=== PATIENT | male | born 1975 | race Caucasian/White ===

== ENCOUNTER 2016-11-26 18:07 | Emergency (ER) | payer OTHER ==
[~2016-11-26] VITALS: Ht 175.3 cm; Wt 98.1 kg
[~2016-11-26 18:07] MED LIST: ACET500C5 PO; ASPI81TA3 PO; BISM262O23 PO; DIVA250T60 PO; METF500T4 PO; OMEG-135 PO; PHEN100C PO; PHEN300C2 PO; SIMV20TA97 PO; ZOF8 PO
[2016-11-26 18:09] VITALS: Ht 175.3 cm; Wt 98.1 kg
[2016-11-26] MEDS ORDERED: IBUPROFEN 800 MG TAB PO ONE (19:00)
--- NOTE | 2016-11-26 19:28 | RADRPT ---
PROCEDURE: XR Right Foot. CLINICAL INDICATION: Right foot pain. TECHNIQUE: Three views. Frontal, lateral, and oblique. COMPARISON: None. FINDINGS: There is no fracture or dislocation. The soft tissues are normal. Articular surfaces are intact. There is no lytic or blastic lesion. There is a surgical screw in the medial malleolus. IMPRESSION: 1. Surgical screw in the medial malleolus. 2. Otherwise normal images of the right foot. RPTAT: QQ .Chivo Trevino MD, Date Time Electronically viewed and signed by .Chivo Trevino MD, on 11/26/2016 19:27 .R/
[2016-11-26 20:20] VITALS: BP 123/64; PULSE 71; RESP 18
[2016-11-26] MEDS ORDERED: IBUP-1542 PO (20:20)
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
== END 2016-11-26 20:20 | disposition home or self-care (01) ==
LOC: FTE 18:07
DX: S99.921A Unspecified injury of right foot, initial encounter (principal); I10 Essential (primary) hypertension; E11.9 Type 2 diabetes mellitus without complications; W18.40XA Slipping, tripping and stumbling without falling, unspecified, initial encounter; Y92.9 Unspecified place or not applicable; Z79.82 Long term (current) use of aspirin; Z79.84 Long term (current) use of oral hypoglycemic drugs; Z87.891 Personal history of nicotine dependence
CPT/HCPCS: 73630; Z7502; Z7610

== ENCOUNTER 2017-03-19 23:15 | Inpatient (IN) | payer OTHER ==
[~2017-03-19] VITALS: Ht 175.3 cm; Wt 100.0 kg
[~2017-03-19 23:15] MED LIST changes: +IBUP-1542 PO; +SIMV20TA PO; -SIMV20TA97 PO
[2017-03-19 23:19] VITALS: Ht 175.3 cm; Wt 100.0 kg
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
[2017-03-19 23:56] LABS: ADD SCAN DIFF NO
[2017-03-19 23:58] LABS: BASOPHILS % 0.4 % (0.0-2.0); EOSINOPHILS # 0.2 10^3/ul (0.0-0.5); EOSINOPHILS % 1.5 % (0.0-7.0); HEMATOCRIT 45.9 % (42.0-52.0); HEMOGLOBIN 15.8 g/dl (14.0-18.0); LYMPHOCYTES # 3.8 10^3/ul (0.8-2.9); LYMPHOCYTES % 38.4 % (15.0-51.0); MEAN CORPUSCULAR HEMOGLOBIN 29.8 pg (29.0-33.0); MEAN CORPUSCULAR HGB CONC 34.4 g/dl (32.0-37.0); MEAN CORPUSCULAR VOLUME 86.6 fl (82.0-101.0); MEAN PLATELET VOLUME 9.1 fl (7.4-10.4); MONOCYTE # 0.7 10^3/ul (0.3-0.9); NEUTROPHIL # 5.2 10^3/ul (1.6-7.5); NEUTROPHILS % 52.3 % (39.0-77.0); PLATELET COUNT 332 10^3/UL (140-415); RED CELL DISTRIBUTION WIDTH 12.5 % (11.5-14.5); WHITE BLOOD COUNT 9.9 10^3/ul (4.8-10.8)
[2017-03-20 00:19] LABS: ALBUMIN 4.4 g/dl (3.3-4.9); ALBUMIN/GLOBULIN RATIO 1.41; BILIRUBIN,INDIRECT 0.1 mg/dl (0-1.1); BILIRUBIN,TOTAL 0.1 mg/dl (0.2-1.3); CALCIUM 9.4 mg/dl (8.4-10.2); CREATININE 0.64 mg/dl (0.61-1.24); POTASSIUM 3.8 mmol/L (3.5-5.1); TOTAL PROTEIN 7.5 g/dl (6.1-8.1)
[2017-03-20 00:20] LABS: ADD UMIC NO; URINE BILIRUBIN (Dip) NEGATIVE (NEGATIVE); URINE BLOOD (Dip) NEGATIVE (NEGATIVE); URINE COLOR LT. YELLOW (YELLOW); URINE GLUCOSE (Dip) NEGATIVE (NEGATIVE); URINE KETONES (Dip) NEGATIVE (NEGATIVE); URINE LEUKOCYTE ESTERASE (Dip) NEGATIVE (NEGATIVE); URINE NITRITE (Dip) NEGATIVE (NEGATIVE); URINE TOTAL PROTEIN (Dip) NEGATIVE (NEGATIVE); URINE UROBILINOGEN (Dip) 0.2 E.U./dL (0.1-1.0)
--- NOTE | 2017-03-20 01:58 | RADRPT ---
PROCEDURE: XR acute abdominal series. CLINICAL INDICATION: Abdominal pain. TECHNIQUE: 4 view abdomen x-ray series including a frontal radiograph of the chest is available fo r review. COMPARISON: None. FINDINGS: Gas and stool are seen within nondilated large bowel. There are no dilated loops of small bowel to suggest a bowel obstruction. There is no pneumoperitoneum. No abnormal calcifications are identifie d. The lungs are clear. The cardiomediastinal silhouette is within normal limits. No pleural effusion or pneumothorax is seen. IMPRESSION: 1. Nonobstructive bowel gas pattern. 2. No pneumoperitoneum. 3. Clear lungs. RPTAT: HTAR .Persley Coy MD, MD Date Time Electronically viewed and signed by .Presley Coy MD, on 03/20/2017 01:57 .R/
--- NOTE | 2017-03-20 02:02 | RADRPT ---
PROCEDURE: US Abdomen (right upper quadrant). CLINICAL INDICATION: Pain. TECHNIQUE: Multiple real-time longitudinal and transverse images of the right upper quadrant of th e abdomen were acquired utilizing a curved array transducer. Images were reviewed on a high-resoluti on PACS workstation. COMPARISON: None FINDINGS: The liver is enlarged and 19 22 cm length with normal echogencity and without a focal mass. Gallbla dder is filled with calcified gallstones. Gallbladder wall is slightly thickened and 3.1 mm. There is no pericholecystic fluid. There is a positive sonographic Holland's sign. No intra or extrahepat ic biliary dilatation is seen. The common bile duct measures 3.4 mm in maximal dimension. The panc reas is obscured by bowel gas. No free fluid is identified. The right kidney measures 12.2 cm in length. Right kidney is normal in size and echogenicity withou t hydronephrosis, mass or calculus. There is no perinephric fluid collection. IMPRESSION: 1. Cholelithiasis with gallbladder wall thickening and positive sonographic Holland's sign suggestin g cholecystitis. 2. No evidence for biliary obstruction. 3. Pancreas obscured by bowel gas. .Gonzales Perez MD, MD Date Time Electronically viewed and signed by .Gonzales Perez MD, MD on 03/20/2017 02:02 .Rick/
[2017-03-20] MEDS ORDERED: morphine 4 MG/ML VIAL IV STA (02:09)
[2017-03-20] MEDS ORDERED: CEFTRIAXONE 2 GM/50 ML (PMX) 50 ML IVPB ONE (02:30)
[2017-03-20] MEDS ORDERED: SOD CHLORIDE 0.9% 1,000 ML IV ONE (02:30)
[2017-03-20 02:35] LABS: INR 0.91; PARTIAL THROMBOPLASTIN TIME 26.1 Sec (25.0-35.0); PROTIME 12.3 Sec (12.2-14.2)
[2017-03-20 03:03] VITALS: TEMP 98
[2017-03-20] MEDS ORDERED: ONDANSETRON 4 MG INJ IV STA (03:04)
[2017-03-20] MEDS ORDERED: ACETAMINOPHEN 325 MG TAB PO PRN (03:30)
[2017-03-20] MEDS ORDERED: ONDANSETRON 4 MG INJ IV PRN ×2 (03:30→05:00)
[2017-03-20 04:00] VITALS: BP 115/56; PULSE 60; RESP 18
[2017-03-20] MEDS ORDERED: GLUCAGON 1 MG INJ IM PRN (05:00)
[2017-03-20] MEDS ORDERED: DEXTROSE 50% 50 ML SYRINGE IV PRN ×2 (05:00)
[2017-03-20] MEDS ORDERED: GLUCOSE GEL 15 GRAM TUBE BUCCAL PRN (05:00)
[2017-03-20] MEDS ORDERED: GLUCOSE GEL 15 GRAM TUBE PO PRN ×2 (05:00)
[2017-03-20] MEDS: SOD CHLORIDE 0.9% 1,000 ML IV SCH ×4 (05:55→23:27)
[2017-03-20] MEDS: INSULIN ASPART [NOVOLOG] 3 ML PEN SC SCH ×5 (06:05→21:00)
[2017-03-20] MEDS: PIPER-TAZO 3.375 GM IV (PMX) 100 ML IVPB SCH ×4 (06:29→23:37)
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
[2017-03-20] MEDS ORDERED: NACL 0.9% 3 ML SYG IV SCH (07:00)
[2017-03-20 08:04] VITALS: BP 112/69; RESP 18
[2017-03-20 10:12] LABS: ADD SCAN DIFF NO
[2017-03-20 10:15] LABS: BASOPHILS % 0.4 % (0.0-2.0); EOSINOPHILS # 0.1 10^3/ul (0.0-0.5); EOSINOPHILS % 1.6 % (0.0-7.0); HEMATOCRIT 45.8 % (42.0-52.0); MEAN CORPUSCULAR HEMOGLOBIN 29.3 pg (29.0-33.0); MEAN CORPUSCULAR HGB CONC 32.8 g/dl (32.0-37.0); MEAN CORPUSCULAR VOLUME 89.5 fl (82.0-101.0); MEAN PLATELET VOLUME 9.1 fl (7.4-10.4); MONOCYTE # 0.5 10^3/ul (0.3-0.9); NEUTROPHIL # 3.8 10^3/ul (1.6-7.5); NEUTROPHILS % 50.6 % (39.0-77.0); PLATELET COUNT 292 10^3/UL (140-415); RED BLOOD COUNT 5.12 10^6/ul (4.70-6.10); RED CELL DISTRIBUTION WIDTH 12.9 % (11.5-14.5); WHITE BLOOD COUNT 7.5 10^3/ul (4.8-10.8)
[2017-03-20 10:36] LABS: CHOL/HDL RATIO 1.8 RATIO
[2017-03-20] MEDS: HYDROmorphONE 1 MG/ML SYG IV PRN (13:03)
[2017-03-20] MEDS: DIVALPROEX (ER) 250 MG TAB PO SCH ×2 (13:06→20:48)
[2017-03-20] MEDS: PHENYTOIN 100 MG CAP PO SCH ×2 (13:06→20:48)
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
[2017-03-20 20:41] VITALS: BP 120/82; RESP 50
[2017-03-20] MEDS: FISH OIL 1,000 MG CAP PO SCH (20:47)
[2017-03-20] MEDS: ATORVASTATIN 20 MG TAB PO SCH (20:47)
[2017-03-20] MEDS ORDERED: DIVALPROEX (ER) 250 MG TAB PO SCH (21:00)
[2017-03-20 22:30] VITALS: PULSE 55
[2017-03-21] VITALS (22 sets, daily range): BP systolic 109–146; BP diastolic 60–79; PULSE 46–76; RESP 15–23
[2017-03-21] MEDS: HYDROmorphONE 1 MG/ML SYG IV PRN ×3 (00:08→20:39)
[2017-03-21] MEDS: INSULIN ASPART [NOVOLOG] 3 ML PEN SC SCH ×6 (01:00→21:00)
[2017-03-21] MEDS: PIPER-TAZO 3.375 GM IV (PMX) 100 ML IVPB SCH ×3 (05:24→20:42)
[2017-03-21 05:27] LABS: ADD SCAN DIFF NO
[2017-03-21 06:02] LABS: BASOPHILS % 0.5 % (0.0-2.0); EOSINOPHILS # 0.2 10^3/ul (0.0-0.5); HEMATOCRIT 43.2 % (42.0-52.0); HEMOGLOBIN 14.5 g/dl (14.0-18.0); MEAN CORPUSCULAR HEMOGLOBIN 29.5 pg (29.0-33.0); MEAN CORPUSCULAR HGB CONC 33.6 g/dl (32.0-37.0); MEAN CORPUSCULAR VOLUME 87.8 fl (82.0-101.0); MEAN PLATELET VOLUME 9.4 fl (7.4-10.4); MONOCYTE # 0.6 10^3/ul (0.3-0.9); MONOCYTES % 8.7 % (0.0-11.0); NEUTROPHIL # 3.5 10^3/ul (1.6-7.5); NEUTROPHILS % 47.4 % (39.0-77.0); PLATELET COUNT 306 10^3/UL (140-415); RED BLOOD COUNT 4.92 10^6/ul (4.70-6.10); RED CELL DISTRIBUTION WIDTH 12.5 % (11.5-14.5); WHITE BLOOD COUNT 7.4 10^3/ul (4.8-10.8)
[2017-03-21 06:06] LABS: CALCIUM 8.3 mg/dl (8.4-10.2); CREATININE 0.6 mg/dl (0.61-1.24); MAGNESIUM 1.5 mg/dl (1.7-2.5); POTASSIUM 4.1 mmol/L (3.5-5.1)
[2017-03-21] MEDS: SOD CHLORIDE 0.9% 1,000 ML IV SCH ×3 (06:50→21:06)
[2017-03-21] MEDS: PHENYTOIN 100 MG CAP PO SCH ×2 (09:00→21:00)
[2017-03-21] MEDS: DIVALPROEX (ER) 250 MG TAB PO SCH ×2 (09:00→21:00)
[2017-03-21] MEDS ORDERED: PHENYTOIN 100 MG CAP PO SCH (09:00)
[2017-03-21] MEDS: FISH OIL 1,000 MG CAP PO SCH ×2 (09:00→21:00)
--- NOTE | 2017-03-21 10:56 | PN ---
Date/Time of Note Date/Time of Note DATE: 03/21/17 TIME: 10:56 Assessment/Plan Lines/Catheters IV Catheter Type (from Nrs): Peripheral IV Guerra in Place (from Nrs): No Assessment/Plan Assessment/Plan 41-year-old male with acute cholecystitis * Patient continues to have pain requiring IV narcotic pain medication * Recommend laparoscopic cholecystectomy; possible open * Discussed risks and benefits of the procedure with patient. Patient understands and agrees to proceed * Will schedule for surgery Subjective 24 Hr Interval Summary Still with right upper quadrant abdominal pain requiring IV narcotic pain medication. Afebrile. Exam/Review of Systems Vital Signs Vitals Vital Signs Date Time Temp Pulse Resp B/P Pulse Ox O2 Delivery O2 Flow Rate FiO2 03/21/17 08:30 98.0 52 18 124/77 98 03/20/17 04:00 Room Air Intake and Output 03/20/17 03/20/17 03/21/17 15:00 23:00 07:00 Intake Total 100 ml 1860 ml 3010 ml Output Total 1400 ml Balance 100 ml 1860 ml 1610 ml Exam Free Text/Dictation GENERAL APPEARANCE: A well-developed, well-nourished male who is awake , alert, and oriented x3 and in no acute distress at this time. His skin is not jaundiced. HEENT: Pupils are equal and reactive to light and accommodation. Extraocular muscles are intact. There is no scleral icterus. CARDIOVASCULAR: S1, S2, regular rate and rhythm. No murmurs appreciated. RESPIRATORY: Clear to auscultation bilaterally. ABDOMEN: Soft. Bowel sounds are present. He is nondistended. There is right upper quadrant tenderness to palpation. There is a negative Holland sign. EXTREMITIES: Do not exhibit any cyanosis, edema or clubbing. Results Result Diagram: 03/21/17 0452 03/21/17 0452 HANNA THOMASON MD March 21, 2017 10:56
--- NOTE | 2017-03-21 11:05 | PN ---
Date/Time of Note Date/Time of Note DATE: 03/21/17 TIME: 11:00 Assessment/Plan VTE Prophylaxis VTE Prophylaxis Intervention: SCD's Lines/Catheters IV Catheter Type (from Nrs): Peripheral IV Urinary Cath still in place: No Assessment/Plan Chief Complaint/Hosp Course Assessment and plan 1. Acute cholecystitis. Patient with abdominal imaging consistent with cholecystitis. Surgeon following. . Continue antibiotics. Monitor for now. Should patient have worsening pain. Tentative plan for surgical intervention 2. History of seizures. Patient resumed on his antiepileptic medication. 3. History of dyslipidemia. Continue statin medication. 4. Hypomagnesemia. To be repleted. Will check level in a.m. 5. Reported history of diabetes. A1c of 5.9. Patient on metformin at home. To be resumed as outpatient. Disposition and plan : on antibiotics for cholecystitis.. Will follow up with surgeon recommendations. Continue antibiotics for now. Tentative plan for surgical intervention should patient have persistent pain. Discussed plan of care with Dr. Ponce Problems: Subjective 24 Hr Interval Summary Free Text/Dictation Still reports having some right upper quadrant abdominal pain. 1-3 out of intensity. Nonradiating. No nausea vomiting reported with it. Exam/Review of Systems Vital Signs Vitals Vital Signs Date Time Temp Pulse Resp B/P Pulse Ox O2 Delivery O2 Flow Rate FiO2 03/21/17 08:30 98.0 52 18 124/77 98 03/20/17 04:00 Room Air Intake and Output 03/20/17 03/20/17 03/21/17 15:00 23:00 07:00 Intake Total 100 ml 1860 ml 3010 ml Output Total 1400 ml Balance 100 ml 1860 ml 1610 ml Exam Constitutional: alert, oriented, other (Blind) Psych: nl mood/affect Head: normocephalic Neck: supple, No jvd Respiratory: clear to auscultation Gastrointestinal: soft, tender Musculoskeletal: No swelling Neurological: [employer] AGENT II-XII intact, nl mental status, nl speech Results Result Diagram: 03/21/172 03/21/17451 Results 24 hrs Laboratory Tests Test 03/20/17 13:09 03/20/17 17:25 03/20/17 20:51 03/21/17 01:03 Bedside Glucose 126 92 97 87 Test 03/21/17 04:52 03/21/17 08:56 White Blood Count 7.4 Red Blood Count 4.92 Hemoglobin 14.5 Hematocrit 43.2 Mean Corpuscular Volume 87.8 Mean Corpuscular Hemoglobin 29.5 Mean Corpuscular Hemoglobin Concent 33.6 Red Cell Distribution Width 12.5 Platelet Count 306 Mean Platelet Volume 9.4 Neutrophils % 47.4 Lymphocytes % 41.0 Monocytes % 8.7 Eosinophils % 2.0 Basophils % 0.5 Nucleated Red Blood Cells % 0.0 Neutrophils # 3.5 Lymphocytes # 3.0 H Monocytes # 0.6 Eosinophils # 0.2 Basophils # 0.0 Nucleated Red Blood Cells # 0.0 Sodium Level 140 Potassium Level 4.1 Chloride Level 111 H Carbon Dioxide Level 25 Anion Gap 8 Blood Urea Nitrogen 8 Creatinine 0.60 L Glucose Level 88 Bedside Glucose 84 90 Calcium Level 8.3 L Magnesium Level 1.5 L Medications Medications Current Medications Piperacillin Sod/ Tazobactam Sod 100 ml @ 200 mls/hr Q6 IVPB Last administered on 03/21/17 05:24; Admin Dose 200 MLS/HR; Start 03/20/17 at 06:00 Sodium Chloride (NS) 1,000 ml @ 150 mls/hr Q6H40M IV Last administered on 06:50; Admin Dose 150 MLS/HR; Start 03/20/17 at 05:00 Hydromorphone HCl (Dilaudid) 0.5 mg Q4H PRN IV PAIN Last administered on 00:08; Admin Dose 0.5 MG; Start 03/20/17 at 05:00 Ondansetron HCl (Zofran Inj) 4 mg Q4H PRN IV NAUSEA AND/OR VOMITING Last administered on 03/20/17 19:43; Admin Dose 4 MG; Start 03/20/17 at 05:00 Insulin Aspart (Novolog Insulin Pen) NOVOLOG *MILD* ALGORI... Q4 SC ; Start 03/20 at 05:00 Miscellaneous Information 1 ea NOTE XX ; Start 03/20/17 at 05:00 Glucose (Glutose) 15 gm Q15M PRN PO DECREASED GLUCOSE; Start 03/20/17 at 05:00 Glucose (Glutose) 22.5 gm Q15M PRN PO DECREASED GLUCOSE; Start 03/20/17 at 05:00 Dextrose (D50w Syringe) 25 ml Q15M PRN IV DECREASED GLUCOSE; Start 03/20/17 at 05:00 Dextrose (D50w Syringe) 50 ml Q15M PRN IV DECREASED GLUCOSE; Start 03/20/17 at 05:00 Glucagon (Glucagen) 1 mg Q15M PRN IM DECREASED GLUCOSE; Start 03/20/17 at 05:00 Glucose (Glutose) 15 gm Q15M PRN BUCCAL DECREASED GLUCOSE; Start 03/20/17 at 05: 00 Fish Oil (Fish Oil) 2,000 mg BID PO Last administered on 03/20/17 20:47; Admin Dose 2,000 MG; Start 03/20/17 at 21:00 Phenytoin (Dilantin) 300 mg HS PO Last administered on 03/20/17 20:48; Admin Dose 300 MG; Start 03/20/17 at 21:00 Atorvastatin Calcium (Lipitor) 20 mg DAILY@21 PO Last administered on 03/20/17 20:47; Admin Dose 20 MG; Start 03/20/17 at 21:00 Phenytoin (Dilantin) 200 mg AM PO Last administered on 03/20/17 13:06; Admin Dose 200 MG; Start 03/20/17 at 13:00 Divalproex Sodium (Depakote Er) 250 mg BID PO Last administered on 03/20/17 20: 48; Admin Dose 250 MG; Start 03/20/17 at 13:00 GEO ENGEL March 21, 2017 11:05
[2017-03-21] MEDS ORDERED: BUPIVACAINE 0.25%/EPI (SDV) 30 ML INJ ONE (16:26)
[2017-03-21] MEDS ORDERED: SUCCINYLCHOLINE CHLORIDE 100 MG/5 ML SYG IV ONE (16:26)
[2017-03-21] MEDS ORDERED: ROCURONIUM 50 MG INJ ONE ×3 (16:26→17:41)
[2017-03-21] MEDS ORDERED: PROPOFOL 40 ML ONE (16:26)
[2017-03-21] MEDS ORDERED: ROPIVACAINE 0.5 % 30 ML VIAL ONE ×2 (16:27→16:33)
[2017-03-21] MEDS ORDERED: MIDAZOLAM 1 MG/ML 2 ML INJ ONE (16:27)
[2017-03-21] MEDS ORDERED: PHENYLephrine (100 MCG/ML) 5ML SYG ONE (16:51)
[2017-03-21] MEDS ORDERED: ONDANSETRON 4 MG INJ IV PRN ×2 (17:30→18:30)
[2017-03-21] MEDS ORDERED: DIPHENHYDRAMINE 50 MG INJ IV PRN (17:30)
[2017-03-21] MEDS ORDERED: morphine (1 MG/ML) 10ML SYRINGE IV PRN ×3 (17:30)
[2017-03-21] MEDS ORDERED: LABETALOL HCL 20MG INJ IV PRN (17:30)
[2017-03-21] MEDS ORDERED: MEPERIDINE 25 MG INJ IV PRN (17:30)
[2017-03-21] MEDS ORDERED: HYDROmorphONE (0.2 MG/ML) 10ML SYG IV PRN ×3 (17:30)
[2017-03-21] MEDS ORDERED: EPHEDrine SULFATE 50 MG/5 ML SYG IV PRN (17:30)
[2017-03-21] MEDS ORDERED: hydrALAzine 20 MG INJ IV PRN (17:30)
[2017-03-21] MEDS ORDERED: FENTAnyl 50 MCG/ML VIAL IV PRN ×3 (17:30)
[2017-03-21] MEDS ORDERED: NEOSTIGMINE 3 MG/3 ML SYRINGE ONE (18:11)
[2017-03-21] MEDS ORDERED: ONDANSETRON 4 MG INJ ONE (18:14)
[2017-03-21] MEDS ORDERED: METOCLOPRAMIDE 10 MG INJ ONE (18:14)
[2017-03-21] MEDS ORDERED: DEXAMETHASONE 4 MG/ML 1 ML INJ ONE (18:14)
[2017-03-21] MEDS ORDERED: HYDROCODONE/APAP (10/325) TAB PO PRN (18:30)
[2017-03-21] MEDS ORDERED: HYDROCODONE/APAP (5/325) TAB PO PRN (18:30)
[2017-03-21] MEDS ORDERED: ACETAMINOPHEN 325 MG TAB PO PRN (18:30)
--- NOTE | 2017-03-21 18:41 | OPR ---
Date/Time of Note Date/Time of Note DATE: 03/21/17 TIME: 18:34 Operative Report Procedure Date: March 21, 2017 Preoperative Diagnosis Acute cholecystitis Postoperative Diagnosis Acute cholecystitis Operation Performed Laparoscopic cholecystectomy Surgeon: HANNA THOMASON MD Anesthesia: general Anesthesiologist: ALEXUS MASSEY MD Estimated Blood Loss: 50 - 100 ml's Specimens Gallbladder Complications: None Pt Condition Post Procedure: stable Disposition: PACU Indications The patient is a 41-year-old male who presented with a two-week history of right upper quadrant abdominal pain. Patient's clinical symptoms worsened over the course of the last 24 hours prior to admission and became associated with nausea and vomiting. On arrival to the emergency room the patient had clinical signs and symptoms of [acute cholecystitis] which was confirmed via an ultrasound. He was admitted, started on broad-spectrum intravenous antibiotics , IV fluids and pain control. The patient was scheduled for laparoscopic cholecystectomy; possible open as definitive treatment to prevent further sequelae of gallstone disease which include but are not limited to: Gangrenous cholecystitis, choledocholithiasis, gallstone pancreatitis, ascending cholangitis, etc. All risks and benefits of the procedure including but not limited to: Wound infection, excessive bleeding, common bile duct injury, postoperative biliary leak, retained common bile duct stone, injury to intra- abdominal organs, conversion to open procedure etc. were all explained to the patient in full detail. He fully understood and wished to proceed with the procedure. Informed consent was therefore obtained. Operative\Procedure Findings Gallbladder fully impacted with stones dense adhesions of omentum to the gallbladder. Procedure Description The patient was operating room and placed supine on the operating table. Bilateral sequential compression devices were placed on both lower extremities. Patient scheduled dose of broad-spectrum intravenous antibiotics was given. After the induction of smooth general endotracheal anesthesia the patient's abdomen was prepped and draped in the standard surgical fashion. After performance of the surgical timeout a 5 mm incision was made in the inferior umbilicus and a Veress needle was used to access the intra-abdominal cavity atraumatically. Pneumoperitoneum was then obtained and the Veress needle was exchanged for a 5 mm trocar through which a 5 mm laparoscope was placed. Three further working ports were then placed a 12 mm port in the sub-xiphoid region and two 5 mm ports in the right upper quadrant. All port sites were anesthetized with 0.25% Marcaine [with epinephrine] prior to incision. Diagnostic laparoscopy showed adhesions of the stomach to the left upper quadrant. Using atraumatic graspers the gallbladder was grasped at its fundus and retracted superiorly. The gallbladder was fully impacted stones and therefore very difficult to grasp throughout its entire length. There were dense inflammatory adhesions of the omentum covering the anterior surface of the gallbladder. A considerable amount of time was spent lysing and taking down these adhesions using a combination of blunt dissection and electrocautery. Eventually enough adhesions were taken down to be able to grasp the gallbladder near its infundibulum and retract it laterally exposing the area of Grant's pouch. Dissection was begun in this area using a combination of blunt dissection and hook electrocautery. The cystic duct was identified as it entered straight into the neck of the gallbladder. It was dissected free of surrounding tissues and clipped proximally and distally x 3 and transected using EndoShears. Dissection was then continued posteriorly. The cystic artery was identified posterior and lateral to the cystic duct and dissected free of surrounding tissues. During dissection there was some oozing of the cystic artery which was responsible for the majority of blood loss in the procedure. Eventually the cystic artery was able to be clipped proximally and distally 3 and transected using the hook electrocautery. The gallbladder was then dissected off the liver bed using electrocautery. Once completely free the gallbladder was placed in an Endo Catch bag and withdrawn through the subxiphoid port site which needed to be extended to accommodate the large gallbladder impacted fully with stones and passed off the field as specimen. [ Hemostasis was then inspected for and noted to be total.] In order to aid in hemostasis fibrillar was placed in the area of the gallbladder fossa. [The abdomen was then irrigated with several liters of warm normal saline and the irrigant returned crystal clear.] The fascia of the subxiphoid port site was then reapproximated with an Endo Close device and 0 Vicryl sutures in figure-of- eight fashion. Pneumoperitoneum was then released and all remaining trochars were withdrawn under direct vision. [The subcutaneous tissues were irrigated with more warm normal saline]. The skin was then reapproximated using skin susan. The incisions were cleaned and sterile dressings were applied to the incisions and the patient was awoken from anesthesia and transported to the recovery room in stable condition. All counts were correct at the end of the case x 2. HANNA THOMASON MD March 21, 2017 18:41
[2017-03-21] MEDS: ATORVASTATIN 20 MG TAB PO SCH (21:00)
[2017-03-21] MEDS: DOCUSATE SODIUM 100 MG CAP PO SCH (21:00)
[2017-03-22] MEDS: INSULIN ASPART [NOVOLOG] 3 ML PEN SC SCH ×4 (00:55→13:00)
[2017-03-22] MEDS: HYDROmorphONE 1 MG/ML SYG IV PRN ×3 (00:56→10:12)
[2017-03-22 01:35] VITALS: BP 126/78; RESP 20
[2017-03-22] MEDS: PIPER-TAZO 3.375 GM IV (PMX) 100 ML IVPB SCH ×3 (02:04→13:09)
[2017-03-22] MEDS: SOD CHLORIDE 0.9% 1,000 ML IV SCH (03:27)
[2017-03-22 05:21] LABS: ADD SCAN DIFF NO
[2017-03-22 05:28] LABS: BASOPHILS % 0.3 % (0.0-2.0); EOSINOPHILS % 0.4 % (0.0-7.0); HEMATOCRIT 43.3 % (42.0-52.0); HEMOGLOBIN 14.3 g/dl (14.0-18.0); LYMPHOCYTES # 2.9 10^3/ul (0.8-2.9); LYMPHOCYTES % 26.2 % (15.0-51.0); MEAN CORPUSCULAR HEMOGLOBIN 29.2 pg (29.0-33.0); MEAN CORPUSCULAR VOLUME 88.4 fl (82.0-101.0); MEAN PLATELET VOLUME 9.5 fl (7.4-10.4); MONOCYTE # 0.9 10^3/ul (0.3-0.9); MONOCYTES % 8.3 % (0.0-11.0); NEUTROPHILS % 64.3 % (39.0-77.0); PLATELET COUNT 295 10^3/UL (140-415); RED CELL DISTRIBUTION WIDTH 12.5 % (11.5-14.5); WHITE BLOOD COUNT 10.9 10^3/ul (4.8-10.8)
[2017-03-22 06:00] LABS: ALBUMIN 3.4 g/dl (3.3-4.9)
[2017-03-22 06:01] LABS: POTASSIUM 3.4 mmol/L (3.5-5.1)
[2017-03-22 06:03] LABS: ALBUMIN/GLOBULIN RATIO 1.21; BILIRUBIN,INDIRECT 0.2 mg/dl (0-1.1); BILIRUBIN,TOTAL 0.2 mg/dl (0.2-1.3); CREATININE 0.68 mg/dl (0.61-1.24); TOTAL PROTEIN 6.2 g/dl (6.1-8.1)
[2017-03-22 06:04] LABS: CALCIUM 8.1 mg/dl (8.4-10.2)
[2017-03-22 07:31] VITALS: BP 126/80; RESP 18
[2017-03-22] MEDS: FISH OIL 1,000 MG CAP PO SCH (08:50)
[2017-03-22] MEDS: PHENYTOIN 100 MG CAP PO SCH (08:51)
[2017-03-22] MEDS: DOCUSATE SODIUM 100 MG CAP PO SCH (08:51)
[2017-03-22] MEDS: DIVALPROEX (ER) 250 MG TAB PO SCH (08:58)
--- NOTE | 2017-03-22 09:22 | PN ---
Date/Time of Note Date/Time of Note DATE: 03/22/17 TIME: 09:20 Assessment/Plan Lines/Catheters IV Catheter Type (from Nrsg): Peripheral IV Guerra in Place (from Nrsg): No Assessment/Plan Assessment/Plan 41-year-old male status post laparoscopic cholecystectomy postop day #1 * Advance diabetic diet * Out of bed/incentive spirometry * Physical therapy * Pain control as needed * LFTs are okay * Surgically stable for discharge home if tolerating diet with pain controlled and medically cleared * Follow-up in office in 1 week Subjective 24 Hr Interval Summary Doing well. Complains of mild incisional pain, controlled with medication. Tolerating clear liquids. Afebrile. Exam/Review of Systems Vital Signs Vitals Vital Signs Date Time Temp Pulse Resp B/P Pulse Ox O2 Delivery O2 Flow Rate FiO2 03/22/17 07:31 98.5 51 18 126/80 99 03/21/17 22:50 Nasal Cannula 2.0 Intake and Output 03/21/17 03/21/17 03/22/17 15:00 23:00 07:00 Intake Total 1200 ml 2100 ml 1288 ml Output Total 30 ml 800 ml Balance 1200 ml 2070 ml 488 ml Exam Free Text/Dictation GENERAL APPEARANCE: A well-developed, well-nourished male who is awake , alert, and oriented x3 and in no acute distress at this time. HEENT: There is no scleral icterus. CARDIOVASCULAR: S1, S2, regular rate and rhythm. No murmurs appreciated. RESPIRATORY: Clear to auscultation bilaterally. ABDOMEN: Soft. Bowel sounds are present. He is nondistended. Appropriate incisional tenderness to palpation. DRESSINGS: Moderate saturation of subxiphoid port dressing. EXTREMITIES: Do not exhibit any cyanosis, edema or clubbing. Results Result Diagram: 03/22/17 0415 03/22/17 0415 HANNA THOMASON MD March 22, 2017 09:22
[2017-03-22] MEDS ORDERED: SENN-53 PO (11:32)
--- NOTE | 2017-03-22 11:33 | PDOCDIS ---
Discharge Instructions DIAGNOSIS Discharge Diagnosis: 1. Acute cholecystitis 2. History of seizure 3. Hypomagnesemia CONDITION Patient Condition: Stable HOME CARE INSTRUCTIONS: Diet Instructions: Low Fat /Cholesterol FOLLOW UP/APPOINTMENTS Appointments 1. Follow up with Dr. Gonzales Garcia in one week GEO ENGEL March 22, 2017 11:33
--- NOTE | 2017-03-22 18:33 | DS ---
DATE OF ADMISSION: 03/20/2017 DATE OF DISCHARGE: 03/22/2017 CONSULTANTS: Dr. Gonzales Garcia. DISCHARGE DIAGNOSES: 1. Acute cholecystitis. 2. History of seizures. 3. Dyslipidemia. 4. Hypomagnesemia. 5. Reported history of diabetes. HOSPITAL COURSE: This is a 41-year-old male with past medical history of diabetes, seizures came in to [facility] with reports of abdominal pain. According to report, the patient h ad been having right upper quadrant abdominal pain for 2 weeks' duration. He did state that he also had decreased appetite and associated pain with oral consumption of food. He did have symptoms of vomiting, nonbilious, nonbloody, associated with it. Denies any diarrhea or constipation. Subseque ntly, he went to [facility] for further evaluation. Upon examination, he did have gallbladder ultrasound that did show cholelithiasis with gallbladder wall thickening and positive s onographic Holland sign suggestive of cholecystitis. The patient was placed on n.p.o. and consulted by general surgeon. He also was found with leukocytosis, likely reactive to his cholecystitis. The patient was optimized with analgesics. He did undergo laparoscopic cholecystectomy with good respo nse. He was able to tolerate oral diet status post surgery. During his course of his stay, he did improve. He was otherwise optimized medically. He was resumed on his antiepileptic medication for his history of seizures with no active issue of that noted during admission. He was also resumed on statin medication for dyslipidemia and did have his electrolytes repleted with his magnesium for hy pomagnesemia. He did have a history of diabetes and, after A1c was checked, it was noted to be at 5 .9. He was resumed on metformin. As previously mentioned, during his course of stay, he did improv e. The plan of care was discussed with patient and patient did verbalize his understanding. On the day of discharge, the patient was in stable condition. DISCHARGE PHYSICAL EXAMINATION AND VITAL SIGNS: Stable. DISCHARGE CONDITION: Stable. DISCHARGE PLAN: 1. Diet is low fat, low cholesterol. 2. The patient to follow up with Dr. Gonzales Garcia within a week. 3. The patient to call surgeon should he have worsening of abdominal pain, nausea, vomiting, for fe vers. DISCHARGE MEDICATIONS: 1. Senna 1 tab p.o. b.i.d. as needed for constipation. 2. Afton 10/325 one tab p.o. every 4 hours as needed for pain. 3. Acetaminophen 500 mg p.o. every 6 hours as needed for elevated temperature. 4. Aspirin 81 mg p.o. daily. 5. Depakote 250 mg p.o. b.i.d. 6. Fish oil 2000 mg p.o. b.i.d. 7. Ibuprofen 600 mg p.o. every 6 hours as needed for pain. 8. Metformin 500 mg p.o. b.i.d. 9. Zofran 8 mg p.o. every 6 hours as needed for nausea. 10. Dilantin 200 mg p.o. q.a.m. 11. Dilantin 300 mg p.o. at bedtime. DISCHARGE PROCESS TIME: 40 minutes. Discussed plan of care with Dr. Ponce. Dictated By: GEO ENGEL NP for CORNELIO GAGNON/WICHO Conf#: [id number] DID#: [id number]
== END 2017-03-22 15:55 | disposition home or self-care (01) | DRG 419 ==
LOC: E/R 23:15 → MS1 03-20 03:05
PROVIDERS: ADMIT Family Medicine; ATTEND Family Medicine
PROC: 0FN44ZZ Release Gallbladder, Percutaneous Endoscopic Approach (ICD-10-PCS; 2017-03-21)
PROC: 0FT44ZZ Resection of Gallbladder, Percutaneous Endoscopic Approach (ICD-10-PCS; principal; 2017-03-21 13:30)
DX: K80.00 Calculus of gallbladder with acute cholecystitis without obstruction (principal); E83.42 Hypomagnesemia; K82.8 Other specified diseases of gallbladder; E11.9 Type 2 diabetes mellitus without complications; Z79.84 Long term (current) use of oral hypoglycemic drugs; H54.0 Blindness, both eyes; G40.909 Epilepsy, unspecified, not intractable, without status epilepticus
CPT/HCPCS: 36415; 74010; 76705; 80048; 80053; 80061; 80164; 80185; 81003; 82962; 83036; 83690; 83735; 85025; 85610; 85730; 88304; 96374; 96375; J0330; J1100; J1170; J1815; J2175; J2250; J2270; J2370; J2405; J2543; J2710; J2765; J2795; J3010; J7030

== ENCOUNTER 2017-06-06 16:16 | Emergency (ER) | payer OTHER ==
[~2017-06-06] VITALS: Ht 175.3 cm; Wt 107.5 kg
[~2017-06-06 16:16] MED LIST changes: +SENN-53 PO; -SIMV20TA PO
[2017-06-06 16:19] VITALS: Ht 175.3 cm; Wt 107.5 kg
[2017-06-06] MEDS ORDERED: ACET500C5 PO (18:59)
[2017-06-06] MEDS ORDERED: AMOX1TAB10 PO (18:59)
--- NOTE | 2017-06-07 01:51 | ERD ---
ER Documentation Chief Complaint Date/Time DATE: 06/07/17 TIME: 01:49 Chief Complaint sore throat x 1 week HPI 42-year-old male comes in with symptoms of sore throat for the past week, and presents with right-sided neck lymph node swelling. Denies fevers or chills, trouble swallowing, voice changes or drooling. ROS All systems reviewed and are negative except as per history of present illness. Medications Home Meds Active Scripts Acetaminophen* (Tylophen*) 500 Mg Capsule, 1 CAP PO Q6H Y for PAIN AND OR ELEVATED TEMP, #20 CAP Prov:CORBIN MORALES PA-C 06/06/17 Amoxicillin/Potassium Clav (Amox-Clav 875-125 mg Tablet) 875-125 mg Tab, 1 TAB PO BID for 7 Days, #14 TAB Prov:CORBIN MORALES PA-C 06/06/17 Sennosides* (Senna Lax*) 8.6 Mg Tablet, 1 TAB PO BID, #30 TAB Prov:GEO ENGEL 03/22/17 Ibuprofen* (Motrin*) 600 Mg Tab, 600 MG PO Q6H Y for PAIN AND OR ELEVATED TEMP, #30 TAB Prov:VENICE SIU MD 11/26/16 Acetaminophen* (Tylophen*) 500 Mg Capsule, 1 CAP PO Q6H Y for PAIN AND OR ELEVATED TEMP, #14 CAP Prov:ABDIEL CAVAZOS MD 05/19/16 Bismuth Subsalicylate* (Pepto-Bismol*) 262 Mg/15 Ml Oral.susp, 15 ML PO Q3H Y for DIARRHEA for 5 Days, ML Prov:ABDIEL CAVAZOS MD 05/19/16 Ondansetron Hcl* (Zofran* ODT) 8 mg -ODT Tab.disper, 8 MG PO Q6 Y for NAUSEA AND /OR VOMITING, #10 TAB Prov:ABDIEL CAVAZOS MD 05/19/16 Reported Medications Metformin* (Glucophage*) 500 Mg Tab, 500 MG PO TID, TAB 12/28/14 Phenytoin* Sodium Extended (Dilantin*) 300 Mg Capsule, 300 MG PO HS, CAP 12/28/14 Phenytoin* Sodium Extended (Dilantin*) 100 Mg Capsule, 200 MG PO AM, CAP 2/14/15 Fish Oil* (Fish Oil*) 1,000 Mg Cap, 2000 MG PO BID, CAP 12/28/14 Divalproex Sodium* (Depakote*) 250 Mg Tablet.dr, 250 MG PO BID, TAB 12/28/14 Aspirin* (Aspirin* Chew) 81 Mg Tab.chew, 81 MG PO DAILY, TAB.CHEW 12/28/14 Allergies Allergies: Coded Allergies: No Known Allergies (Verified Allergy, Mild, 01/17/12) PMhx/Soc History of Surgery: Yes (brain surgery, thracotomy,,ankle surgery,heart surgery ) Anesthesia Reaction: No Hx Neurological Disorder: Yes (epilepsy) Hx Respiratory Disorders: Yes (asthma) Hx Cardiac Disorders: Yes (heartb surgery) Hx Psychiatric Problems: No Hx Miscellaneous Medical Probl: No Hx Alcohol Use: Yes (SOCIAL DRINKER.) Hx Substance Use: No Hx Tobacco Use: No Physical Exam Vitals Vital Signs Date Time Temp Pulse Resp B/P Pulse Ox O2 Delivery O2 Flow Rate FiO2 06/06/17 16:19 98.7 75 18 132/82 99 Physical Exam General: Well-developed, well-nourished. The patient appears in no acute distress. HEENT: Head is normocephalic, atraumatic. No scleral icterus. Oropharynx is erythematous, there is no exudate, uvula midline, no abscess. Neck: Supple. Nontender. Positive right-sided anterior cervical chain lymphadenopathy Lungs: Clear to auscultation. Normal air movement. Heart: Regular rate and rhythm. S1 and S2 are normal. No murmurs, gallops, or rubs. Abdomen: Nondistended. Extremities: No clubbing or cyanosis. Moving extremities x 4. No weakness. Neurologic: Alert and oriented 3. No focal deficits. Normal speech and gait. Skin: Normal turgor. No rash or lesions. Procedures/MDM 42-year-old male presents with history of sore throat for a week with lymphadenopathy. Patient will be treated for lymphangitis, with associated pharyngitis. No signs of any suspicious masses in the neck. He will be given Tylenol for pain as well as antibiotics, including Augmentin. With no improvement in a week, he should recheck with his primary care doctor. Patient's blood pressure was elevated (>120/80) but appears stable without evidence of hypertension emergency or urgency. The patient was counseled about the risks of hypertension and urged to pursue outpatient monitoring and therapy within a week with their primary care physician. Departure Diagnosis: Primary Impression: Sore throat Condition: Good Patient Instructions: Lymphangitis Additional Instructions: Llame al doctor LILIBETH y jennifer teresa LUIS PARA DENTRO DE 1-2 BOLANOS.Dgale a la secretaria que nosotros le instruimos hacer esta luis.Avise o llame si rondon condicin se empeora antes de la luis. Regresa aqui si peor o no mejor. CORBIN MORALES PA-C Jun 07, 2017 01:51
== END 2017-06-06 19:09 | disposition home or self-care (01) ==
LOC: FTE 16:16
DX: J02.9 Acute pharyngitis, unspecified (principal); J45.909 Unspecified asthma, uncomplicated; Z79.84 Long term (current) use of oral hypoglycemic drugs; Z79.82 Long term (current) use of aspirin
CPT/HCPCS: 99283

== ENCOUNTER 2019-01-30 11:59 | Emergency (ER) | payer OTHER ==
[~2019-01-30] VITALS: Ht 167.6 cm; Wt 108.0 kg
[~2019-01-30 11:59] MED LIST changes: +AMOX1TAB10 PO; +ASPI-903 PO; -ASPI81TA3 PO; +METF-849 PO; -METF500T4 PO; +SENN-120 PO; -SENN-53 PO
[2019-01-30 12:50] VITALS: BP 111/75; PULSE 75; RESP 20; Ht 167.6 cm; Wt 108.0 kg
[2019-01-30] MEDS ORDERED: ACETAMINOPHEN 325 MG TAB PO ONE (15:30)
[2019-01-30] MEDS ORDERED: IBUP-1542 PO (16:02)
--- NOTE | 2019-01-30 16:05 | ERD ---
ER Documentation Chief Complaint Chief Complaint R toe injury 1 week and a half ago; numbness; no swelling noted HPI 43-year-old male presents with pain in the right toe for a week he dropped a 2 L bottle of soda. He has no redness, bleeding, discharge. Symptoms are restricted to the right big toe. ROS All systems reviewed and are negative except as per history of present illness. Medications Home Meds Active Scripts Ibuprofen* (Motrin*) 600 Mg Tab, 600 MG PO Q6, #20 TAB Prov:ABDIEL CAVAZOS MD 01/30/19 Acetaminophen* (Tylophen*) 500 Mg Capsule, 1 CAP PO Q6H PRN for PAIN AND OR ELEVATED TEMP, #20 CAP Prov:CORBIN MORALES PA-C 06/06/17 Amoxicillin/Potassium Clav (Amox-Clav 875-125 mg Tablet) 875-125 mg Tab, 1 TAB PO BID for 7 Days, #14 TAB Prov:CORBIN MORALES PA-C 06/06/17 Sennosides* (Senna Lax*) 8.6 Mg Tablet, 1 TAB PO BID, #30 TAB Prov:GEO ENGEL 03/22/17 Ibuprofen* (Motrin*) 600 Mg Tab, 600 MG PO Q6H PRN for PAIN AND OR ELEVATED TEMP, #30 TAB Prov:VENICE SIU MD 11/26/16 Acetaminophen* (Tylophen*) 500 Mg Capsule, 1 CAP PO Q6H PRN for PAIN AND OR ELEVATED TEMP, #14 CAP Prov:ABDIEL CAVAZOS MD 05/19/16 Bismuth Subsalicylate* (Pepto-Bismol*) 262 Mg/15 Ml Oral.susp, 15 ML PO Q3H PRN for DIARRHEA for 5 Days, ML Prov:ABDIEL CAVAZOS MD 05/19/16 Ondansetron Hcl* (Zofran* ODT) 8 mg -ODT Tab.disper, 8 MG PO Q6 PRN for NAUSEA AND/OR VOMITING, #10 TAB Prov:ABDIEL CAVAZOS MD 05/19/16 Reported Medications Metformin* (Glucophage*) 500 Mg Tab, 500 MG PO TID, TAB 12/28/14 Phenytoin* Sodium Extended (Dilantin*) 300 Mg Capsule, 300 MG PO HS, CAP 12/28/14 Phenytoin* Sodium Extended (Dilantin*) 100 Mg Capsule, 200 MG PO AM, CAP 12/28/14 Fish Oil* (Fish Oil*) 1,000 Mg Cap, 2000 MG PO BID, CAP 12/28/14 Divalproex Sodium* (Depakote*) 250 Mg Tablet.dr, 250 MG PO BID, TAB 12/28/14 Aspirin* (Aspirin* Chew) 81 Mg Tab.chew, 81 MG PO DAILY, TAB.CHEW 12/28/14 Allergies Allergies: Coded Allergies: No Known Allergies (Verified Allergy, Mild, 01/17/12) PMhx/Soc History of Surgery: Yes (brain surgery, thracotomy,,ankle surgery,heart surgery) Anesthesia Reaction: No Hx Neurological Disorder: Yes (epilepsy) Hx Respiratory Disorders: Yes (asthma) Hx Cardiac Disorders: Yes (heartb surgery) Hx Psychiatric Problems: No Hx Miscellaneous Medical Probl: No Hx Alcohol Use: Yes (SOCIAL DRINKER.) Hx Substance Use: No Hx Tobacco Use: No FmHx Family History: No diabetes, No coronary disease, No other Physical Exam Vitals Vital Signs Date Temp Pulse Resp B/P (MAP) Pulse Ox O2 O2 Flow FiO2 Time Delivery Rate 01/30/19 37.0 15:12 01/30/19 98.5 75 20 111/75 97 12:50 (87) Physical Exam Const: No acute distress Head: Atraumatic Eyes: Normal Conjunctiva ENT: Normal External Ears, Nose and Mouth. Neck: Full range of motion. No meningismus. Resp: Clear to auscultation bilaterally Cardio: Regular rate and rhythm, no murmurs Abd: Soft, non tender, non distended. Normal bowel sounds Skin: No petechiae or rashes Back: No midline or flank tenderness Ext: No cyanosis, or edema. Right big toe mild tenderness without swelling, deformities, restricted range of motion or weakness. Neur: Awake and alert Psych: Normal Mood and Affect Results 24 hrs Current Medications Medications Dose Sig/Mike Start Time Status Last (Trade) Ordered Route PRN Stop Time Admin Dose Reason Admin 650 mg ONCE ONCE 01/30/19 DC 01/30/19 Acetaminophen PO 15:30 15:12 (Tylenol 01/30/19 15:31 Tab) Procedures/MDM X-ray right big toe 2V Interpreted by me: Bones: No fracture Joints: No dislocation Foreign Body: None. Impression have a normal right big toe x-ray Was given Tylenol for pain. Patient's right big toe contusion without signs of infection, ischemia, deficits, fracture, dislocation. Patient states in the right postop shoe is neurovascular intact after the shoe. Patient was discharged home with primary care follow-up and a prescription ibuprofen. He should return for fevers, redness, new worsening symptoms. Departure Diagnosis: Primary Impression: Injury of toe Encounter type: initial encounter Laterality: right Qualified Codes: S99.921A - Unspecified injury of right foot, initial encounter Condition: Stable Patient Instructions: Sprain Toe Referrals: [facility] (PCP) Additional Instructions: X-ray normal. Recheck for redness, fevers, new worsening symptoms. See primary doctor for pain next week. ABDIEL CAVAZOS MD Jan 30, 2019 16:05
== END 2019-01-30 16:41 | disposition home or self-care (01) ==
LOC: FTE 11:59
DX: S99.921A Unspecified injury of right foot, initial encounter (principal); J45.909 Unspecified asthma, uncomplicated; W20.8XXA Other cause of strike by thrown, projected or falling object, initial encounter; Y92.9 Unspecified place or not applicable; Z79.82 Long term (current) use of aspirin; Z79.84 Long term (current) use of oral hypoglycemic drugs
CPT/HCPCS: 73660; Z7502; Z7610